=== PATIENT | female | born 1960 | race Two or more races ===

== ENCOUNTER 2019-01-16 20:46 | Emergency (ER) | payer OTHER ==
[~2019-01-16] VITALS: Ht 160 cm; Wt 68.9 kg
[2019-01-16] MEDS ORDERED: PAXIL CR25 MG (20:58)
[2019-01-16] MEDS ORDERED: OSEL75CA (20:59)
[2019-01-16] MEDS ORDERED: SIMVASTATIN5 MG (20:59)
== END 2019-01-16 21:26 | disposition home or self-care (01) ==
LOC: ER 20:46
DX: J11.1 Influenza due to unidentified influenza virus with other respiratory manifestations (principal)